=== PATIENT | female | born 1990 | race Caucasian/White ===

== ENCOUNTER 2017-05-17 12:56 | Emergency (ER) | payer OTHER ==
[~2017-05-17] VITALS: Ht 154.9 cm; Wt 56.0 kg
[2017-05-17 12:59] VITALS: Ht 154.9 cm; Wt 56.0 kg
[2017-05-17] MEDS ORDERED: HYDROCODONE/APAP (5/325) TAB PO ONE (14:00)
[2017-05-17] MEDS ORDERED: NAPR-260 PO (14:16)
[2017-05-17] MEDS ORDERED: ACET500C5 PO (14:16)
[2017-05-17 14:39] VITALS: BP 118/75; PULSE 70; RESP 18; TEMP 98.4
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
== END 2017-05-17 14:40 | disposition home or self-care (01) ==
LOC: FTE 12:56
DX: S29.001A Unspecified injury of muscle and tendon of front wall of thorax, initial encounter (principal); V49.50XA Passenger injured in collision with unspecified motor vehicles in traffic accident, initial encounter
CPT/HCPCS: 99283

== ENCOUNTER 2019-02-09 19:53 | Emergency (ER) | payer OTHER ==
[~2019-02-09] VITALS: Ht 154.9 cm; Wt 69.0 kg
[~2019-02-09 19:53] MED LIST: ACET500C5 PO; NAPR-985 PO
[2019-02-09 20:54] VITALS: Ht 154.9 cm; Wt 69.0 kg
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
[2019-02-10] MEDS ORDERED: SOD CHLORIDE 0.9% 1,000 ML IV STA (00:13)
[2019-02-10] MEDS ORDERED: METOCLOPRAMIDE 10 MG INJ IV STA (00:13)
[2019-02-10] MEDS ORDERED: DIPHENHYDRAMINE 50 MG INJ IV STA (00:13)
[2019-02-10] MEDS ORDERED: KETOROLAC 30 MG INJ IM STA (00:13)
[2019-02-10] MEDS ORDERED: ACET500C5 PO (00:18)
[2019-02-10] MEDS ORDERED: ONDA4TAB14 PO (00:18)
[2019-02-10] MEDS ORDERED: BEN25 PO (00:18)
[2019-02-10] MEDS ORDERED: KETOROLAC 30 MG INJ IV STA (01:15)
[2019-02-10 01:42] VITALS: BP 111/61; PULSE 76; RESP 19
== END 2019-02-10 01:44 | disposition home or self-care (01) ==
LOC: FTE 19:53
DX: R51 Headache (principal); R11.2 Nausea with vomiting, unspecified
CPT/HCPCS: 81025; 96361; 96374; 96375; J1200; J1885; J2765; J7030; Z7502